=== PATIENT | male | born 1995 | race Two or more races ===

== ENCOUNTER 2024-10-28 19:13 | Emergency (ER) | payer MEDICAID, SELFPAY ==
[2024-10-28 19:14] VITALS: BMI 401.9
[2024-10-28 19:22] VITALS: BP 153/91; PULSE 91; RESP 20; TEMP 37.2; O2SAT 98
--- NOTE | 2024-10-28 19:31 | EDNOTE_ITS ---
ED Dental RME/HPI General Chief complaint: Dental/Oral/Throat Stated complaint: SWELLING TO RIGHT CHEEK Time Seen by Provider: 10/28/24 19:32 Source: patient Arrival date/time: 10/28/24 19:13 29-year-old male with no known medical history presents to the emergency room with a chief complaint of swelling, tenderness to the right cheek x 6 days. Mode of arrival: ambulatory Limitations: no limitations Related Data Previous Rx's ?Medication ?Instructions ?Recorded clindamycin HCl 150 mg capsule 450 mg (3 x 150 mg) PO TID 7 days 10/28/24 #63 caps Allergies Allergy/AdvReac Type Severity Reaction Status Date / Time No Known Allergies Allergy Verified 10/28/24 19:17 Review of Systems Review of Systems Systems Reviewed: All systems reviewed, normal except as documented Constitutional Constitutional: Reports system reviewed and no additional complaints, except as documented, Denies fatigue, Denies fever(s), Denies headache(s) and Denies weakness Eyes Eyes: Reports system reviewed and no additional complaints, except as documented, Denies blurry vision and Denies change in vision ENT Ears, Nose, Mouth, and Throat: Reports system reviewed and no additional complaints, except as documented, Denies otalgia, Denies headache(s), Denies nasal congestion, Denies throat swelling and Denies vertigo Cardiovascular Cardiovascular: Reports system reviewed and no additional complaints, except as documented, Denies chest pain, Denies dyspnea and Denies dyspnea on exertion Respiratory Respiratory: Reports system reviewed and no additional complaints, except as documented, Denies chest congestion, Denies cough, Denies dyspnea, Denies dyspnea on exertion and Denies wheezing Gastrointestinal Gastrointestinal: Reports system reviewed and no additional complaints, except as documented, Denies abdominal pain, Denies cramping, Denies nausea and Denies vomiting Genitourinary Genitourinary: Reports system reviewed and no additional complaints, except as documented, Denies dysuria and Denies hematuria Musculoskeletal Musculoskeletal: Reports system reviewed and no additional complaints, except as documented and Denies back pain Integumentary/Breasts Skin/Breast: Reports system reviewed and no additional complaints, except as documented and Reports wounds (4 cm abscess to the right cheek) Neurologic Neurologic: Reports system reviewed and no additional complaints, except as documented, Denies confusion, Denies headache(s), Denies lack of coordination, Denies vertigo and Denies weakness Psychiatric Psychiatric: Reports system reviewed and no additional complaints, except as documented, Denies anxiety, Denies confusion, Denies depression, Denies paranoia, Denies suicidal ideation and Denies tactile hallucinations Endocrine Endocrine: Reports system reviewed and no additional complaints, except as documented and Denies fatigue Hematologic/Lymphatic Hematologic/Lymphatic: Reports system reviewed and no additional complaints, except as documented and Denies lymphadenopathy Allergic/Immunologic Allergic/Immunologic: Reports system reviewed and no additional complaints, except as documented, Denies throat swelling, Denies urticaria and Denies wheezing Past Medical History Social History SMOKING STATUS: Current every day smoker ED Exam General Limitations: Present no limitations General appearance: Present alert and in no apparent distress Head Head exam: Present atraumatic Expanded Head Exam Head exam physical: Present other Head image: 2 1. 4 cm erythemic abscess with pus Eye Eye exam: Present normal appearance, PERRL and EOMI ENT ENT exam: Present normal exam, normal oropharynx and mucous membranes moist Neck Neck exam: Present normal inspection, full ROM and trachea midline Chest Chest inspection: Present normal inspection and symmetric chest wall rise Respiratory Respiratory exam: Present normal lung sounds bilaterally Cardiovascular Cardiovascular exam: Present regular rate, normal rhythm and normal heart sounds Abdominal Exam Abdominal exam: Present soft and normal bowel sounds Extremities Exam Extremities exam: Present normal inspection and full ROM Back Exam Back exam: Present normal inspection and full ROM Neurological Exam Neurological exam: Present alert, oriented X3 and CN II-XII intact Psychiatric Psychiatric exam: Present normal affect and normal mood Skin Skin exam: Present warm, dry, intact and normal color Course Quality Measures none Orders Category Date Time Status Incision and Drainage Set Up X1 Care 10/28/24 19:30 Completed Set Up Suture Tray STAT Care 10/28/24 19:30 Completed Wound Care X1 Care 10/28/24 19:30 Completed Clindamycin Vial [Cleocin vial] Med 10/28/24 19:30 Discontinued 600 mg IM X1 ONE Lidocaine 1% 20 ml [Xylocaine 1% 20 ML] Med 10/28/24 19:30 Discontinued 20 ml INFL X1 ONE Vital Signs Vital signs: Vital Signs Temperature 99.0 F 10/28/24 19:22 Pulse Rate 91 10/28/24 19:22 Respiratory Rate 20 10/28/24 19:22 Blood Pressure 153/91 H 10/28/24 19:22 Pulse Oximetry (%) 98 10/28/24 19:22 O2 saturation 98% within normal limits Procedures -ED Abscess I/D Site: face (Right cheek) Side (if applicable): right Local Anesthetic: lidocaine 1% Amount of anesthesia used (mL): 3 Technique: incised with #11 blade Amount of fluid expressed (mL): 4 Irrigation: Yes Packing used?: none Dental / Oral MDM Narrative MDM Narrative:: 29-year-old male with no known medical history presents to the emergency room with a chief complaint of swelling, tenderness to the right cheek x 6 days. Clinically the patient appears nontoxic and in no apparent distress. Physical examination shows a 4 cm erythemic abscess to the right side of his face on his cheek. The abscess is full of pus. An I&D was completed using a #11 blade. The area was cleaned and prepped with Betadine. 3 mL of lidocaine were used to numb up the area. A small incision was used to create a puncture and the abscess was drained. They are worse about 4 to 5 mL of pus and serosanguineous fluid. The area was cleaned and irrigated. Antibiotics were given to the patient and patient was educated return to the emergency room for any evidence of worsening signs or symptoms Patient data External records reviewed:: [facility] previous records Clinical information provided by:: patient Social determinants that could affect healthcare access:: none Patient has the following chronic illnesses:: No chronic illness How is presenting disease/condition affected by chronic disease/condition?: no chronic disease Evaluation data The following diagnostics were reviewed and interpreted by me:: lab results and radiology exam(s) Lab and/or radiology exams considered but not ordered:: Labs and radiology exams considered and ordered Interpretation Summary: N/A Medications / Prescriptions Medications or Prescriptions considered but not ordered:: Rx given Medication administrations:: Medication Administration History Discontinued Medications Clindamycin Phosphate (Clindamycin Phos Inj 150 Mg/Ml Vial 6 Ml) 600 mg IM X1 ONE Stop: 10/28/24 19:31 Last Admin: 10/28/24 20:01 Dose: 600 mg Documented By: MINAL Lidocaine HCl (Lidocaine Hcl 1% 20 Ml Vial) 20 ml INFL X1 ONE Stop: 10/28/24 19:31 Last Admin: 10/28/24 20:01 Dose: 20 ml Documented By: OA Rx given Consultations Consultation(s) initiated? (list below): No Diagnosis Dental Differential Diagnosis: toothache, dental abscess and other (Facial abscess/cellulitis) Most likely diagnosis given after review of the tests above:: Facial abscess Admission Indicated Admission indicated?: not indicated Admission Request Was there a request for admission?: No Disposition Plan Disposition Plan: Discharge Discharge Attestation Discharge Attestation: The patient and all family members were given an opportunity to ask questions and understood the discharge instructions. Discharge instructions specifically effects, indications for sooner follow up or return to the emergency department, and the expected course of current diagnosis. Patient condition: Stable Discharge Plan Plan Patient Disposition: HOME (Self Care) Disposition Comment: Stable Prescriptions/Referrals Prescriptions/Med Rec: New clindamycin HCl 150 mg capsule 450 mg PO TID 7 Days Qty: 63 0RF Problem List Clinical Impression: Abscess of face, Encounter for incision and drainage procedure Patient/Caregiver Discharge Instructions Education Materials: ED Abscess, Incision And Drainage Additional Instructions: Por favor, consulte con gutierrez m?dico de cabecera en las pr?ximas 24 a 48 horas. Se le dren? el absceso en la caryl. Se enviaron antibi?ticos a gutierrez farmacia. Rec?jalos y t?melos seg?n lo indicado. Mantenga esta ?jolene limpia y seca. Si hay evidencia de empeoramiento de los signos o s?ntomas, regrese a la tu de emergencias de inmediato. Print Language: Nepali Stand Alone Forms: S[employer]vanthi Award Info., Patient Portal Info Letter PA/BRANDON Supervising Physician ZEKE/BRANDON Supervising Physician: Dr Martini
[2024-10-28] MEDS: CLINDAMYCIN PHOS INJ 150 MG/ML VIAL 6 ML 600 MG IM (20:01)
[2024-10-28] MEDS: LIDOCAINE HCL 1% 20 ML VIAL INFL (20:01)
== END 2024-10-28 20:47 | disposition home or self-care (01) ==
LOC: SERX 20:42
PROVIDERS: Emergency Provider Emergency Medicine
DX: L02.01 Cutaneous abscess of face (principal)
CPT/HCPCS: 10060; 96372; 99283; J0736; J3490